=== PATIENT | male | born 1955 | race Caucasian/White ===

== ENCOUNTER 2024-11-12 09:56 | Inpatient (IN) | payer MEDICARE, MEDICAID ==
[~2024-11-12] VITALS: Ht 167.6 cm; Wt 69.6 kg
[2024-11-12 10:37] LABS: BASOPHILS % (AUTO) 0.1 % (0.0-2.0); EOSINOPHILS % (AUTO) 2.9 % (1.0-6.0); HEMATOCRIT 46.9 % (41-53); HEMOGLOBIN 15.7 g/dL (13.5-17.5); LYMPHOCYTES # (AUTO) 1.4 K/uL (1.0-4.8); LYMPHOCYTES % (AUTO) 17.5 % (22.0-44.0); MEAN CORPUSCULAR HEMOGLOBIN 30.8 pg (26.0-34.0); MEAN CORPUSCULAR HGB CONC 33.5 G/dL (31.0-37.0); MEAN CORPUSCULAR VOLUME 92 fL (80-100); MONOCYTES # (AUTO) 0.6 K/uL (0.1-1.0); MONOCYTES % (AUTO) 8.1 % (2.0-9.0); NEUTROPHILS # (AUTO) 5.7 K/uL (1.8-7.7); NEUTROPHILS % (AUTO) 71.4 % (40.0-70.0); PLATELET COUNT (AUTO) 185 K/uL (150-450); RED CELL DISTRIBUTION WIDTH 14.9 % (11.5-14.5)
[2024-11-12 10:41] LABS: COVID AG,FIA SOURCE NASAL SWAB
[2024-11-12 10:47] LABS: ANION GAP 9 mmol/L (8-16); CALCIUM, TOTAL 9.4 mg/dL (8.8-10.5); CARBON DIOXIDE 29 mmol/L (22-29); CHLORIDE 104 mmol/L (98-107); CREATININE 0.98 mg/dL (0.60-1.30); GLOMERULAR FILTR. RATE CALC > 60 mL/min (>60); GLUCOSE,RANDOM 108 mg/dL (70-110); POTASSIUM 3.9 mmol/L (3.5-5.1); SODIUM SERUM 142 mmol/L (136-145); UREA NITROGEN, BLOOD 21 mg/dL (7-18)
[2024-11-12 10:52] LABS: ALCOHOL, BLOOD (SERUM) < 3 mg/dL (0-10)
[2024-11-12 11:21] LABS: SARS-COV2 (COVID) ANTIGEN,FIA Negative (Negative)
[2024-11-12] MEDS ORDERED: ZOLPIDEM TARTRATE 10 MG TABLET PO PRN (12:15)
[2024-11-12 14:16] LABS: APPEARANCE,URINE CLEAR (CLEAR); BILIRUBIN,URINE NEGATIVE (NEGATIVE); COLOR,URINE LIGHT YELLOW (YELLOW); GLUCOSE, URINE (UA) NEGATIVE (NEGATIVE); KETONES,URINE NEGATIVE (NEGATIVE); LEUKOCYTE ESTERASE ,URINE NEGATIVE (NEGATIVE); NITRATE,URINE NEGATIVE (NEGATIVE); OCCULT BLOOD,URINE NEGATIVE (NEGATIVE); PH,URINE 6.5 (5.0-8.0); PH,URINE DRUG SCREEN 6.5 (5.0-8.0); PROTEIN,URINE 30-70 mg/dL (NEGATIVE); SPECIFIC GRAVITIY, URINE 1.017 (1.003-1.030); UROBILINOGEN,URINE <=1.0 mg/dL (<=1.0)
[2024-11-12 14:23] LABS: ALCOHOL, URINE DRUG SCREEN NEGATIVE (NEGATIVE); AMPHET/METH SCREEN,URINE NEGATIVE (NEGATIVE); BARBITURATE SCREEN, URINE NEGATIVE (NEGATIVE); BENZODIAZEPINES SCREEN,URINE NEGATIVE (NEGATIVE); CANNABINOID SCREEN,URINE NEGATIVE (NEGATIVE); COCAINE SCREEN,URINE NEGATIVE (NEGATIVE); METHADONE SCREEN, URINE NEGATIVE (NEGATIVE); OPIATE SCREEN,URINE NEGATIVE (NEGATIVE); PHENCYCLIDINE SCREEN,URINE NEGATIVE (NEGATIVE)
[2024-11-13] MEDS: LORazepam 2 MG TABLET PO PRN (16:24)
[2024-11-13] MEDS: haloperidoL 5 MG TABLET PO PRN (16:24)
[2024-11-13] MEDS: ACETAMINOPHEN 325 MG TABLET PO ONE (18:16)
[2024-11-14 03:30] VITALS: O2SAT 98
[2024-11-14 06:11] LABS: BASOPHILS % (AUTO) 0.8 % (0.0-2.0); HEMATOCRIT 49.9 % (41-53); HEMOGLOBIN 16.9 g/dL (13.5-17.5); LYMPHOCYTES # (AUTO) 2.2 K/uL (1.0-4.8); LYMPHOCYTES % (AUTO) 22.6 % (22.0-44.0); MEAN CORPUSCULAR HEMOGLOBIN 31.2 pg (26.0-34.0); MEAN CORPUSCULAR HGB CONC 33.9 G/dL (31.0-37.0); MEAN CORPUSCULAR VOLUME 92 fL (80-100); MONOCYTES # (AUTO) 0.8 K/uL (0.1-1.0); MONOCYTES % (AUTO) 8.1 % (2.0-9.0); NEUTROPHILS # (AUTO) 6.2 K/uL (1.8-7.7); NEUTROPHILS % (AUTO) 64.5 % (40.0-70.0); PLATELET COUNT (AUTO) 177 K/uL (150-450); RED BLOOD CELL COUNT(AUTO) 5.41 MIL/uL (4.50-5.90); RED CELL DISTRIBUTION WIDTH 14.4 % (11.5-14.5); WHITE BLOOD COUNT (AUTO) 9.7 K/uL (4.5-11.0)
[2024-11-14 06:26] LABS: ANION GAP 5 mmol/L (8-16); CALCIUM, TOTAL 9.5 mg/dL (8.8-10.5); CARBON DIOXIDE 28 mmol/L (22-29); CHLORIDE 104 mmol/L (98-107); CREATININE 0.91 mg/dL (0.60-1.30); GLOMERULAR FILTR. RATE CALC > 60 mL/min (>60); GLUCOSE,RANDOM 97 mg/dL (70-110); POTASSIUM 3.7 mmol/L (3.5-5.1); SODIUM SERUM 137 mmol/L (136-145); UREA NITROGEN, BLOOD 22 mg/dL (7-18)
[2024-11-14 11:13] VITALS: BP 157/84; PULSE 97; RESP 18; TEMP 97.8; O2SAT 98
[2024-11-14] MEDS ORDERED: DIVA-111 PO (12:15)
[2024-11-14] MEDS: DIVALPROEX SODIUM 250 MG DR TABLET PO SCH (12:41)
[2024-11-14] MEDS ORDERED: FOLI-130 PO (16:01)
[2024-11-14] MEDS ORDERED: PANT40TA54 PO (16:01)
[2024-11-14] MEDS ORDERED: GABA-1181 PO (16:01)
[2024-11-14] MEDS ORDERED: ROSU20TA98 PO (16:01)
[2024-11-14] MEDS: ESCITALOPRAM OXALATE 10 MG TABLET PO SCH (16:31)
[2024-11-14] MEDS ORDERED: MAG HYDROX/ALUMINUM HYD/SIMETH ES 30 ML SUSPENSION UDCUP PO PRN (20:30)
[2024-11-14] MEDS ORDERED: MAGNESIUM HYDROXIDE SUSPENSION 30 ML UDCUP PO PRN (20:30)
[2024-11-14] MEDS ORDERED: CloNIDine HCL 0.1 MG TABLET PO PRN (20:30)
[2024-11-14] MEDS ORDERED: GuaiFENesin/D-METHORPHAN [SUGAR-FREE] 200-20MG/10 ML SYRUP UDCUP PO PRN (20:30)
[2024-11-14] MEDS ORDERED: ALBUTEROL SULFATE HFA 90 MCG/PUFF 8 GM INHALER IH PRN (20:30)
[2024-11-14] MEDS ORDERED: ONDANSETRON 4 MG TABLET PO PRN (20:30)
[2024-11-14] MEDS ORDERED: NICOTINE 14 MG/24 HOUR PATCH TD PRN (20:30)
[2024-11-14] MEDS ORDERED: PETROLATUM,WHITE 28 GM JELLY TP PRN (20:30)
[2024-11-14] MEDS ORDERED: LOPERAMIDE HCL 2 MG CAPSULE PO PRN (20:30)
[2024-11-14 21:41] VITALS: BP 128/70; PULSE 98; RESP 18; TEMP 98; O2SAT 98
[2024-11-14] MEDS: DIVALPROEX SODIUM 500 MG DR TABLET PO SCH (21:43)
[2024-11-14] MEDS: MELATONIN 5 MG TABLET PO SCH (21:43)
[2024-11-14] MEDS: IBUPROFEN 400 MG TABLET PO PRN (21:44)
[2024-11-14 22:24] VITALS: BP 134/77; PULSE 85; RESP 18; TEMP 98.2; O2SAT 99
[2024-11-14 22:44] VITALS: RESP 18
[2024-11-15 09:29] VITALS: BP 130/81; PULSE 78; RESP 17; TEMP 97.9; O2SAT 98
[2024-11-15] MEDS: BENZOCAINE 10% 7 GM GEL TP PRN (10:18)
[2024-11-15] MEDS: AMOX TR/POT CLAV 500 MG/125 MG TABLET PO SCH (16:14)
[2024-11-15 22:20] VITALS: BP 131/68; PULSE 74; RESP 18; TEMP 98.1; O2SAT 96
[2024-11-15 23:23] VITALS: RESP 18
[2024-11-16] MEDS: FOLIC ACID 1 MG TABLET PO SCH (08:51)
[2024-11-16] MEDS: ROSUVASTATIN CALCIUM 20 MG TABLET PO SCH (08:51)
[2024-11-16] MEDS: PANTOPRAZOLE SODIUM 40 MG DR TABLET PO SCH (08:51)
[2024-11-16 10:55] VITALS: BP 119/65; PULSE 73; RESP 18; TEMP 97.7; O2SAT 98
[2024-11-16 20:25] VITALS: BP 157/83; PULSE 66; RESP 18; TEMP 97.7; O2SAT 97
[2024-11-17 06:15] VITALS: BP 142/61; PULSE 62; RESP 18; TEMP 97.8; O2SAT 98
[2024-11-17 11:33] VITALS: BP 118/64; PULSE 65; RESP 19; TEMP 97.6; O2SAT 99
[2024-11-17 14:28] LABS: BASOPHILS % (AUTO) 0.4 % (0.0-2.0); EOSINOPHILS % (AUTO) 4.8 % (1.0-6.0); HEMATOCRIT 45.9 % (41-53); HEMOGLOBIN 15.3 g/dL (13.5-17.5); LYMPHOCYTES % (AUTO) 26.2 % (22.0-44.0); MEAN CORPUSCULAR HEMOGLOBIN 30.7 pg (26.0-34.0); MEAN CORPUSCULAR HGB CONC 33.3 G/dL (31.0-37.0); MEAN CORPUSCULAR VOLUME 92 fL (80-100); MONOCYTES # (AUTO) 0.6 K/uL (0.1-1.0); MONOCYTES % (AUTO) 7.4 % (2.0-9.0); NEUTROPHILS # (AUTO) 4.6 K/uL (1.8-7.7); NEUTROPHILS % (AUTO) 61.2 % (40.0-70.0); PLATELET COUNT (AUTO) 190 K/uL (150-450); RED BLOOD CELL COUNT(AUTO) 4.98 MIL/uL (4.50-5.90); RED CELL DISTRIBUTION WIDTH 14.5 % (11.5-14.5); WHITE BLOOD COUNT (AUTO) 7.5 K/uL (4.5-11.0)
[2024-11-17 14:36] LABS: HEMOGLOBIN A1C 5.3 % (3.8-5.6)
[2024-11-17 14:50] LABS: ALANINE AMINOTRANSFERASE 16 U/L (12-78); ALBUMIN 3.5 g/dL (3.4-5.0); ALKALINE PHOSPHATASE 60 U/L (46-116); ANION GAP 7 mmol/L (8-16); ASPARTATE AMINOTRANSFERASE 14 U/L (15-37); BILIRUBIN,TOTAL 0.5 mg/dL (0.1-1.0); CARBON DIOXIDE 29 mmol/L (22-29); CHLORIDE 103 mmol/L (98-107); GLOMERULAR FILTR. RATE CALC > 60 mL/min (>60); GLUCOSE,RANDOM 98 mg/dL (70-110); POTASSIUM 4.2 mmol/L (3.5-5.1); SODIUM SERUM 139 mmol/L (136-145); THYROID STIMULATING HORMONE 0.42 uIU/mL (0.36-3.74); TOTAL PROTEIN, SERUM 7.3 g/dL (6.4-8.2); UREA NITROGEN, BLOOD 20 mg/dL (7-18)
[2024-11-17 21:40] VITALS: BP 151/63; PULSE 71; RESP 18; TEMP 98; O2SAT 98
[2024-11-18 09:49] VITALS: BP 134/72; PULSE 74; RESP 18; TEMP 97.2; O2SAT 96
[2024-11-18 22:11] VITALS: BP 145/66; PULSE 65; RESP 19; TEMP 97.6; O2SAT 98
[2024-11-19 08:57] VITALS: BP 109/63; PULSE 83; RESP 18; TEMP 98.1; O2SAT 97
[2024-11-19 11:14] LABS: CHOLESTEROL 166 mg/dL (131-200); HDL CHOLESTEROL 56 mg/dL (40-60); LDL CHOL (CALC.) 87 mg/dL (0-130); TRIGLYCERIDES 114 mg/dL (15-150)
[2024-11-19 20:52] VITALS: BP 129/63; PULSE 65; RESP 16; TEMP 98.3; O2SAT 98
[2024-11-20 10:47] VITALS: BP 135/63; PULSE 59; RESP 18; TEMP 97.2; O2SAT 98
[2024-11-20 22:25] VITALS: BP 144/67; PULSE 63; RESP 18; TEMP 97.1; O2SAT 98
[2024-11-21 09:00] VITALS: BP 152/82; PULSE 72; RESP 18; TEMP 97.7; O2SAT 97
[2024-11-21 21:03] VITALS: BP 156/79; PULSE 69; RESP 18; TEMP 97.4; O2SAT 98
[2024-11-22 16:42] VITALS: BP 148/88; PULSE 72; RESP 18
[2024-11-22 17:45] VITALS: RESP 17
[2024-11-22 22:03] VITALS: BP 164/72; PULSE 61; RESP 18; TEMP 97.3; O2SAT 100
[2024-11-23 08:20] VITALS: BP 151/73; PULSE 61; RESP 18; TEMP 97
[2024-11-23 10:00] VITALS: RESP 16
[2024-11-23 21:46] VITALS: BP 142/76; PULSE 65; RESP 18; TEMP 96.9; O2SAT 97
[2024-11-24 10:41] VITALS: BP 152/64; PULSE 66; RESP 18; TEMP 97.6; O2SAT 96
[2024-11-24 21:30] VITALS: BP 140/75; PULSE 72; RESP 19; TEMP 98.3; O2SAT 98
[2024-11-25 09:57] VITALS: BP 122/63; PULSE 74; RESP 18; TEMP 98.4; O2SAT 99
[2024-11-25 20:36] VITALS: BP 154/74; PULSE 74; RESP 18; TEMP 97.9; O2SAT 99
[2024-11-26 08:56] VITALS: RESP 17; TEMP 97.8
[2024-11-26 17:46] VITALS: BP 125/64; PULSE 75; RESP 18; TEMP 98.2; O2SAT 97
[2024-11-26 21:11] VITALS: BP 156/93; PULSE 65; RESP 18; TEMP 98.2; O2SAT 100
[2024-11-27 09:12] VITALS: BP 122/62; PULSE 66; RESP 18; TEMP 97.7; O2SAT 98
[2024-11-27 21:38] VITALS: RESP 19; TEMP 97.3
[2024-11-28 10:21] VITALS: BP 159/73; PULSE 67; RESP 17; TEMP 97.4; O2SAT 97
[2024-11-28 18:50] VITALS: BP 149/76; PULSE 74; RESP 19; TEMP 97.9; O2SAT 98
[2024-11-29 02:12] VITALS: BP 132/65; PULSE 63; RESP 18; TEMP 98; O2SAT 99
[2024-11-29 08:30] VITALS: BP 126/66; PULSE 63; RESP 18; TEMP 97.5; O2SAT 98
[2024-11-29 09:18] VITALS: BP 138/73; PULSE 71; RESP 17; TEMP 97.7; O2SAT 99
[2024-11-29 21:43] VITALS: BP 144/71; PULSE 62; RESP 19; TEMP 97.9; O2SAT 98
[2024-11-30 11:04] VITALS: BP 130/70; PULSE 57; RESP 18; TEMP 97.8; O2SAT 97
[2024-11-30 22:25] VITALS: BP 145/75; PULSE 70; RESP 18; TEMP 98.2; O2SAT 99
[2024-12-01 10:40] VITALS: BP 139/73; PULSE 76; RESP 19; TEMP 97.6; O2SAT 98
[2024-12-01 21:07] VITALS: BP 146/76; PULSE 65; RESP 18; TEMP 97.5; O2SAT 100
[2024-12-02 09:15] VITALS: RESP 18
[2024-12-02 20:41] VITALS: BP 137/72; PULSE 67; RESP 17; TEMP 97.1; O2SAT 99
[2024-12-03 09:06] VITALS: BP 110/80; PULSE 73; RESP 18; TEMP 97.7; O2SAT 98
[2024-12-03 20:31] VITALS: BP 130/95; PULSE 62; RESP 18; TEMP 97.7; O2SAT 98
[2024-12-04 11:10] VITALS: TEMP 98
[2024-12-04 22:11] VITALS: TEMP 97.1
[2024-12-05 09:32] VITALS: RESP 19; TEMP 97
[2024-12-05 22:11] VITALS: BP 154/87; PULSE 65; RESP 18; TEMP 98; O2SAT 100
[2024-12-06 10:19] VITALS: BP 126/67; PULSE 77; RESP 17; TEMP 97.4; O2SAT 97
[2024-12-06 22:10] VITALS: BP 134/67; PULSE 62; RESP 18; TEMP 97.8; O2SAT 99
[2024-12-07 09:19] VITALS: BP 104/73; PULSE 61; RESP 16; TEMP 97.7; O2SAT 99
[2024-12-07 20:34] VITALS: BP 155/85; PULSE 64; RESP 18; TEMP 97.6; O2SAT 99
[2024-12-08 09:21] VITALS: BP 136/69; PULSE 63; RESP 18; TEMP 98.2; O2SAT 97
[2024-12-08 22:21] VITALS: BP 137/72; PULSE 90; RESP 18; TEMP 97.1; O2SAT 100
[2024-12-09 22:03] VITALS: BP 143/74; PULSE 84; RESP 19; TEMP 97.3; O2SAT 98
[2024-12-10 08:52] VITALS: RESP 18; TEMP 98
[2024-12-10 22:39] VITALS: BP 109/60; PULSE 75; RESP 18; TEMP 97.8
[2024-12-11 11:05] VITALS: RESP 18
[2024-12-11 22:10] VITALS: BP 148/70; PULSE 72; RESP 18; TEMP 98.1; O2SAT 100
[2024-12-12 10:48] VITALS: BP 101/61; PULSE 66; RESP 17; TEMP 97.8; O2SAT 97
[2024-12-12 22:21] VITALS: BP 100/62; PULSE 68; RESP 18; TEMP 97.4; O2SAT 98
[2024-12-13 00:38] VITALS: BP 121/74; PULSE 68; RESP 19; TEMP 97.5; O2SAT 98
[2024-12-13 10:29] VITALS: BP 100/56; PULSE 67; RESP 17; TEMP 97.5; O2SAT 98
[2024-12-13 11:29] VITALS: BP 111/62; PULSE 71; RESP 17; TEMP 98
[2024-12-13 22:49] VITALS: RESP 18
[2024-12-14 09:17] VITALS: BP 111/61; PULSE 60; RESP 18; TEMP 97.7; O2SAT 97
[2024-12-14 10:21] VITALS: RESP 17
[2024-12-14 10:44] VITALS: RESP 17
[2024-12-14] MEDS: ACETAMINOPHEN 325 MG TABLET PO PRN (10:47)
[2024-12-14 11:47] VITALS: RESP 16
[2024-12-14 21:37] VITALS: RESP 18
[2024-12-15 09:50] VITALS: BP 122/55; PULSE 61; RESP 18; TEMP 97.3
[2024-12-15 22:15] VITALS: BP 115/61; PULSE 64; RESP 19; TEMP 97.4
[2024-12-16 09:00] VITALS: BP 146/69; PULSE 67; RESP 18; TEMP 97.6; O2SAT 98
[2024-12-16 11:17] VITALS: BP 140/68; PULSE 74; RESP 18; TEMP 98; O2SAT 97
[2024-12-16 21:13] VITALS: BP 116/68; PULSE 66; RESP 18; TEMP 98; O2SAT 98
[2024-12-17 10:28] VITALS: BP 102/68; PULSE 66; RESP 16; TEMP 97.5; O2SAT 98
[2024-12-17 23:22] VITALS: BP 125/64; PULSE 68; RESP 17; TEMP 97.4; O2SAT 98
[2024-12-18 12:25] VITALS: RESP 18
[2024-12-18 23:24] VITALS: RESP 18
[2024-12-19 12:43] VITALS: BP 112/68; PULSE 67; RESP 17; TEMP 96.4; O2SAT 96
[2024-12-19 21:55] VITALS: BP 138/67; PULSE 63; RESP 17; TEMP 97.3; O2SAT 96
[2024-12-20 08:00] VITALS: BP 125/78; PULSE 78; RESP 20; TEMP 98.3; O2SAT 96
[2024-12-20 21:30] VITALS: BP 105/58; PULSE 58; RESP 18; TEMP 97.3; O2SAT 97
[2024-12-21] MEDS: DOCUSATE SODIUM 100 MG CAPSULE PO PRN (21:31)
[2024-12-21 21:49] VITALS: BP 137/69; PULSE 69; RESP 18; TEMP 97.8; O2SAT 97
[2024-12-22 08:00] VITALS: BP 126/78; PULSE 80; RESP 20; TEMP 97; O2SAT 95
[2024-12-22 20:37] VITALS: RESP 18
[2024-12-23 11:09] VITALS: RESP 18
[2024-12-23 21:00] VITALS: BP 140/72; PULSE 63; RESP 18; TEMP 97.5; O2SAT 96
[2024-12-24 08:00] VITALS: BP 119/66; PULSE 68; RESP 20; TEMP 97.6; O2SAT 96
[2024-12-24 20:22] VITALS: BP 136/58; PULSE 55; RESP 18; TEMP 96.9; O2SAT 96
[2024-12-25 10:04] VITALS: BP 148/75; PULSE 56; RESP 18; TEMP 97.9; O2SAT 97
[2024-12-25 21:30] VITALS: BP 134/67; PULSE 75; RESP 19; TEMP 96.7; O2SAT 98
[2024-12-26 12:08] VITALS: RESP 18
[2024-12-26 21:26] VITALS: BP 117/56; PULSE 64; RESP 18; TEMP 97.3; O2SAT 98
[2024-12-27 21:14] VITALS: BP 136/59; PULSE 60; RESP 17; TEMP 97.6; O2SAT 98
[2024-12-28 11:28] VITALS: BP 131/66; PULSE 65; RESP 18; TEMP 97.2; O2SAT 100
[2024-12-28 22:15] VITALS: BP 103/62; PULSE 60; RESP 18; TEMP 98.4; O2SAT 96
[2024-12-29 08:36] VITALS: BP 126/57; PULSE 57; RESP 18; TEMP 97.7; O2SAT 100
[2024-12-29 21:37] VITALS: BP 118/57; PULSE 68; RESP 19; TEMP 97.5; O2SAT 100
[2024-12-30 10:41] VITALS: BP 111/56; PULSE 57; RESP 18; TEMP 97.5; O2SAT 98
[2024-12-30 20:30] VITALS: BP 143/63; PULSE 69; RESP 18; TEMP 98.2; O2SAT 100
[2024-12-31 09:00] VITALS: BP 134/68; PULSE 74; RESP 17; TEMP 97.9; O2SAT 99
[2024-12-31 23:44] VITALS: BP 123/68; PULSE 60; RESP 18; TEMP 97.3; O2SAT 97
[2025-01-01 22:39] VITALS: RESP 18
[2025-01-02 11:23] VITALS: BP 122/72; PULSE 65; RESP 18; TEMP 98.1; O2SAT 96
[2025-01-02 20:50] VITALS: BP 111/69; PULSE 61; RESP 18; TEMP 97.9
[2025-01-03 15:19] VITALS: BP 137/75; PULSE 57; RESP 18; TEMP 97
[2025-01-03] MEDS ORDERED: PERMETHRIN 1% 60 ML LOTION TP ONE (16:45)
[2025-01-03 20:29] VITALS: BP 130/77; PULSE 60; RESP 18; TEMP 97.3; O2SAT 98
[2025-01-04 21:04] VITALS: BP 128/73; PULSE 63; RESP 18; TEMP 97.1; O2SAT 98
[2025-01-05 09:19] VITALS: BP 105/58; PULSE 68; RESP 17; TEMP 98.1; O2SAT 98
[2025-01-05 22:42] VITALS: BP 119/74; PULSE 69; RESP 18; TEMP 97.5; O2SAT 100
[2025-01-06 09:00] VITALS: BP 119/50; PULSE 57; RESP 18; TEMP 97.3
[2025-01-06 22:37] VITALS: BP 113/65; PULSE 67; RESP 16; TEMP 97.4; O2SAT 96
[2025-01-07 11:04] VITALS: RESP 18
[2025-01-07 22:00] VITALS: BP 117/63; PULSE 68; RESP 18; TEMP 97.2; O2SAT 99
[2025-01-08 14:37] VITALS: BP 137/78; PULSE 84; RESP 18; TEMP 98; O2SAT 99
[2025-01-08 20:30] VITALS: BP 135/71; PULSE 68; RESP 19; TEMP 98.2; O2SAT 99
[2025-01-09 08:00] VITALS: BP 113/59; PULSE 56; RESP 18; TEMP 97.5; O2SAT 99
[2025-01-09 20:57] VITALS: BP 129/70; PULSE 61; RESP 18; O2SAT 99
[2025-01-10 10:16] VITALS: BP 156/69; PULSE 63; RESP 16; TEMP 97.2; O2SAT 99
[2025-01-10 22:01] VITALS: BP 139/61; PULSE 65; RESP 18; TEMP 98.1; O2SAT 98
[2025-01-11 08:30] VITALS: BP 117/83; PULSE 69; RESP 20; TEMP 98; O2SAT 99
[2025-01-11] MEDS ORDERED: ESCI-8 PO (10:32)
[2025-01-11] MEDS ORDERED: MELA5TAB40 PO (10:32)
[2025-01-11] MEDS ORDERED: DIVA-112 PO (10:32)
== END 2025-01-11 16:26 | DRG 885 ==
LOC: EMS 10:02 → UNDOADMIN 11-14 10:40 → 3EI 11-14 10:40 → UNDOADMIN 11-14 12:18 → 3EX 12-15 18:44
PROVIDERS: ADMIT Psychiatry & Neurology Psychiatry; ATTEND Psychiatry & Neurology Psychiatry
PROC: GZHZZZZ Group Psychotherapy (ICD-10-PCS; principal; 2024-11-14)
PROC: GZ52ZZZ Individual Psychotherapy, Cognitive (ICD-10-PCS; 2024-11-14)
DX: F25.1 Schizoaffective disorder, depressive type (principal); R45.851 Suicidal ideations; I69.351 Hemiplegia and hemiparesis following cerebral infarction affecting right dominant side; E11.40 Type 2 diabetes mellitus with diabetic neuropathy, unspecified; G47.00 Insomnia, unspecified; I10 Essential (primary) hypertension; F31.9 Bipolar disorder, unspecified; G40.909 Epilepsy, unspecified, not intractable, without status epilepticus; Z20.822 Contact with and (suspected) exposure to COVID-19; E78.5 Hyperlipidemia, unspecified; F41.9 Anxiety disorder, unspecified; R53.81 Other malaise; Z79.899 Other long term (current) drug therapy
CPT/HCPCS: 71100; 80048; 80053; 80061; 80307; 81003; 83036; 84443; 85025; 87081; 92610; 97110; 97112; 97116; 97162; 97163; 97530; 97535; 99285; G0378; G0480